=== PATIENT | male | born 1970 | race Caucasian/White ===

== ENCOUNTER 2022-07-31 07:31 | Outpatient (CLI) | payer BC ==
[2022-07-31] MEDS ORDERED: Iopamidol 370 76% 100 ML VIAL ONE (09:31)
== END 2022-07-31 07:32 | disposition home or self-care (01) ==
LOC: CSHCT 07:31
PROVIDERS: ATTEND Urology
DX: N39.0 Urinary tract infection, site not specified (principal); N28.89 Other specified disorders of kidney and ureter; N40.0 Benign prostatic hyperplasia without lower urinary tract symptoms
CPT/HCPCS: 74178